=== PATIENT | female | born 1970 ===

== ENCOUNTER 2017-03-11 20:35 | Emergency (ER) | payer MEDICAID ==
[2017-03-11 20:43] VITALS: BP 138/89; PULSE 102; RESP 18; TEMP 97.5; O2SAT 98
--- NOTE | 2017-03-11 21:23 | ED PDOC ---
HPI: Abdomen Time Seen by Provider: 03/11/17 20:47 Chief Complaint (Nursing): Abdominal Pain Chief Complaint (Provider): Abdominal pain History Per: Patient History/Exam Limitations: no limitations Onset/Duration Of Symptoms: Days (1 week) Current Symptoms Are (Timing): Still Present Associated Symptoms: denies: Vomiting, Diarrhea Additional Complaint(s): Patient is a 46 year old female with history of uterine fibroids presenting to the emergency department for worsening lower abdominal pain that radiates to her lower back and is accompanied by a small amount of vaginal bleeding since her last menstrual period one week ago. Reports that she usually experiences pain during her period but this pain has continued and worsened afterwards. Also admits to frequency in urination. Patient reports she takes Advil every day for relief of pain but today she took oxycodone with relief of symptoms. Denies vomiting, diarrhea, or dysuria. Of note, patient was in [facility] about 3 months ago for embolization of fibroids. PCP: none provided Curriculum Consultant: [facility] in [place], [place] Past Medical History Reviewed: Historical Data, Nursing Documentation, Vital Signs Vital Signs: Last Vital Signs Temp 97.5 F L 03/11/17 20:38 Pulse 102 H 03/11/17 20:38 Resp 18 03/11/17 20:38 BP 138/89 03/11/17 20:38 Pulse Ox 98 03/12/17 03:20 - Medical History PMH: Denies: Chronic Kidney Disease Other PMH: Uterine fibroids - Surgical History Surgical History: - Family History Family History: States: Unknown Family Hx - Social History Current smoker - smoking cessation education provided: No Alcohol: None Drugs: Denies - Immunization History Hx Tetanus Toxoid Vaccination: No Hx Influenza Vaccination: No Hx Pneumococcal Vaccination: No - Home Medications Home Medications: Ambulatory Orders Medication Instructions Recorded Ascorbate Calcium [Vitamin C] 500 mg PO DAILY 08/08/16 Ferrous Sulfate [Ferosul] 325 mg PO DAILY 08/08/16 Ibuprofen [Motrin Tab] 800 mg PO Q8 #20 tab 08/08/16 Nitrofurantoin Macrocrystals 100 mg PO BID #10 cap 03/12/17 [Macrobid] - Allergies Allergies/Adverse Reactions: Allergies Allergy/AdvReac Type Severity Reaction Status Date / Time No Known Allergies Allergy Verified 11/09/15 16:33 Review of Systems ROS Statement: Except As Marked, All Systems Reviewed And Found Negative Gastrointestinal: Positive for: Abdominal Pain (lower abdominal pain that radiates to her lower back). Negative for: Vomiting, Diarrhea Genitourinary Female: Positive for: Frequency, Vaginal Bleeding (Small amount ) . Negative for: Dysuria Musculoskeletal: Positive for: Back Pain Physical Exam - Reviewed Nursing Documentation Reviewed: Yes Vital Signs Reviewed: Yes - Physical Exam Appears: Positive for: No Acute Distress (Comfortable). Negative for: Uncomfortable Head Exam: Positive for: ATRAUMATIC, NORMAL INSPECTION, NORMOCEPHALIC Skin: Positive for: Normal Color, Warm, Dry Eye Exam: Positive for: EOMI, Normal appearance, PERRL Neck: Positive for: Normal, Painless ROM, Supple Cardiovascular/Chest: Positive for: Regular Rate, Rhythm. Negative for: Murmur Respiratory: Positive for: Normal Breath Sounds. Negative for: Accessory Muscle Use, Respiratory Distress Gastrointestinal/Abdominal: Positive for: Soft, Tenderness (Diffuse lower abdominal tenderness (Right upper quadrant, left lower quadrant, and suprapubic regions)). Negative for: Normal Exam Back: Positive for: Normal Inspection. Negative for: L CVA Tenderness, R CVA Tenderness Extremity: Positive for: Normal ROM. Negative for: Pedal Edema Neurologic/Psych: Positive for: Alert, Oriented - Laboratory Results Result Diagrams: 03/11/17 21:35 03/11/17 21:35 - ECG O2 Sat by Pulse Oximetry: 98 (RA) Pulse Ox Interpretation: Normal - Progress Re-evaluation Time: 03:20 Condition: Re-examined, Improved Medical Decision Making Medical Decision Making: Time: 21:07 Initial impression: Lower abdominal pain Differential includes but not limited to uterine fibroids, ovarian cysts, cyst rupture, ovarian torsion, urinary tract infection, and dysfunctional uterine bleeding. Will consider other diagnosis as well which are not listed. Initial plan: * Type and Screen * Labs * Urine Dipstick * Urine * US Pelvis/Transvaginal * Reevaluation Scribe Attestation: Documented by China Diaz, acting as a scribe for Deana Mccoy MD. Provider Scribe Attestation: All medical record entries made by the Scribe were at my direction and personally dictated by me. I have reviewed the chart and agree that the record accurately reflects my personal performance of the history, physical exam, medical decision making, and the department course for this patient. I have also personally directed, reviewed, and agree with the discharge instructions and disposition. [id number] EXAM: US Pelvis, transabdominal and Transvaginal CLINICAL HISTORY: 46 years old, female; Pain; Pelvic pain; Prior surgery; Surgery date: 1-6 months ; Surgery type: S/P ufe 3 month ago; Additional info: Lower abdominal pain TECHNIQUE: Real-time transabdominal and transvaginal pelvic ultrasound (complete) with image documentation. Transvaginal imaging was used for better evaluation of the endometrium and adnexa. COMPARISON: No relevant prior studies available. Reference is made to a report from an examination performed 08/08/2016 FINDINGS: Uterus/cervix: The uterus is enlarged measuring 13.6 x 6.2 x 7.2 cm. The uterus is anteverted. A fibroid is detected within the posterior body of the uterus, to the left of midline measuring 8.9 x 5.2 x 5.4 cm (decreased in size from previous examination performed 08/08/2016). Normal endometrial stripe thickness, measuring 8 mm. Right ovary: Unremarkable in echogenicity and size measuring 3.2 x 1.1 x 2.0 cm. No mass. Normal blood flow. Left ovary: Increased in size measuring 4.9 x 3.1 x 2.9 cm. A single focus of decreased echogenicity is identified within the left ovary measuring 3.0 x 2.2 x 3.1 cm. Normal blood flow. Free fluid: No free fluid. IMPRESSION: Fibroid uterus. Simple cyst within the left ovary. [id number]: EXAM: CT Abdomen and Pelvis With Intravenous Contrast CLINICAL HISTORY: 46 years old, female; Pain; Abdominal pain; Localized; Lower; Prior surgery; Surgery date: 6+ months; Surgery type: ; Additional info: Lower abdominal pain TECHNIQUE: Axial computed tomography images of the abdomen and pelvis with intravenous contrast. This CT exam was performed using one or more of the following dose reduction techniques : automated exposure control, adjustment of the mA and/or kV according to patient size, and/ or use of iterative reconstruction technique. Coronal and sagittal reformatted images were created and reviewed. CONTRAST: 90 mL of administered intravenously. EXAM DATE/TIME: 03/12/2017 12:07 AM COMPARISON: CT ABD/PELV W/O CONTRA 04/09/2012 6:52:12 PM FINDINGS: The liver is normal. The spleen is normal. The pancreas is normal. No gallstones. No hydronephrosis or perinephric stranding. The bowel appears normal. A normal appendix is identified coronal images 42 through 51 unchanged from prior. There is a 2.4 cm left ovarian cyst. There is suggestion of a second cyst measuring 1.2 cm. The uterus is enlarged. There is a large approximately 4.5 x 7.5 cm heterogeneous area of low attenuation in the lower uterine segment extending slightly to the left of midline. The area is in contact with the endometrial cavity superiorly. It is not clear if it is contiguous with the endometrial canal versus compressing the endometrial canal. I do not have prior images however prior MRI and ultrasound reports from 2016 are provided which described a fibroid in this region. Based on the prior reports, I would favor fibroid with either necrosis, hemorrhage, or infection as opposed to free complex fluid within the endometrial canal. Correlation with patient's symptoms is recommended. I recommend followup to assess for stability. IMPRESSION: Heterogeneous hypoechoic structure in the lower uterine segment as discussed in detail above. Left ovarian cysts. Scribe Attestation: Documented by Joycelyn Ragsdale, acting as a scribe for Deana Mccoy MD. Scribe Attestation: All medical record entries made by the Scribe were at my direction and personally dictated by me. I have reviewed the chart and agree that the record accurately reflects my personal performance of the history, physical exam, medical decision making, and the department course for this patient. I have also personally directed, reviewed, and agree with the discharge instructions and disposition. Disposition - Clinical Impression Clinical Impression: Fibroid, UTI (urinary tract infection) - Patient ED Disposition Is Patient to be Admitted: No Doctor Will See Patient In The: Office Counseled Patient/Family Regarding: Studies Performed, Diagnosis, Need For Followup - Disposition Referrals: [facility] [Outside] Disposition: Routine/Home Disposition Time: 03:30 Condition: GOOD Additional Instructions: Take advil for pain. Follow up with your PCP in 2-3 days. Prescriptions: Nitrofurantoin Macrocrystals [Macrobid] 100 mg PO BID #10 cap Instructions: Uterine Fibroids (ED), Urinary Tract Infection in Women (DC) Forms: [employer] (Lebanese)
[2017-03-11 21:57] LABS: CHLORIDE 106 mmol/L (98-107)
[2017-03-11 21:58] LABS: POTASSIUM 4.3 MMOL/L (3.6-5.0); SODIUM 138 mmol/l (132-148)
[2017-03-11 22:00] LABS: ALB/GLOB RATIO 1.3 (1.0-2.1); AST/SGOT 53 U/L (14-36); BILIRUBIN,TOTAL 0.7 mg/dl (0.2-1.3); BLOOD UREA NITROGEN 11 mg/dl (7-17); CARBON DIOXIDE 24 mmol/L (22-30); GFR AFRICAN-AMERICAN > 60
[2017-03-11 22:01] LABS: ALKALINE PHOSPHATASE 82 U/L (38-126); ALT/SGPT 30 U/L (9-52); CALCIUM 9.7 mg/dL (8.4-10.2); GLUCOSE,RANDOM 91 mg/dL (65-105)
[2017-03-11 22:02] LABS: BASO # 0.1 K/uL (0.0-0.2); BASO % 0.4 % (0.0-2.0); EOS # 0.1 K/uL (0.0-0.7); EOS % 0.6 % (0.0-4.0); HEMATOCRIT 32.6 % (34.0-47.0); LYMPH # 2.7 K/uL (1.0-4.3); LYMPH % 21.1 % (20.0-40.0); MEAN CELL VOLUME 68.9 fl (81.0-99.0); MEAN CORPUSCULAR HEMOGLOBIN 21.6 pg (27.0-31.0); MEAN CORPUSCULAR HGB CONC 31.3 g/dL (33.0-37.0); MEAN PLATELET VOLUME 8.8 fl (7.2-11.7); MONO # 1.2 K/uL (0.0-0.8); MONO % 9.3 % (0.0-10.0); NEUT # 8.7 K/uL (1.8-7.0); NEUT % 68.6 % (50.0-75.0); NRBC % 0.1 % (0.0-0.0); RED CELL DISTRIBUTION WIDTH 19.4 % (11.5-14.5); WHITE BLOOD COUNT 12.7 K/uL (4.8-10.8)
--- NOTE | 2017-03-11 23:55 | US ---
EXAM: US Pelvis, transabdominal and Transvaginal CLINICAL HISTORY: 46 years old, female; Pain; Pelvic pain; Prior surgery; Surgery date: 1-6 months; Surgery type: S/P ufe 3 month ago; Additional info: Lower abdominal pain TECHNIQUE: Real-time transabdominal and transvaginal pelvic ultrasound (complete) with image documentation. Transvaginal imaging was used for better evaluation of the endometrium and adnexa. COMPARISON: No relevant prior studies available. Reference is made to a report from an examination performed 08/08/2016 FINDINGS: Uterus/cervix: The uterus is enlarged measuring 13.6 x 6.2 x 7.2 cm. The uterus is anteverted. A fibroid is detected within the posterior body of the uterus, to the left of midline measuring 8.9 x 5.2 x 5.4 cm (decreased in size from previous examination performed 08/08/2016). Normal endometrial stripe thickness, measuring 8 mm. Right ovary: Unremarkable in echogenicity and size measuring 3.2 x 1.1 x 2.0 cm. No mass. Normal blood flow. Left ovary: Increased in size measuring 4.9 x 3.1 x 2.9 cm. A single focus of decreased echogenicity is identified within the left ovary measuring 3.0 x 2.2 x 3.1 cm. Normal blood flow. Free fluid: No free fluid. IMPRESSION: Fibroid uterus. Simple cyst within the left ovary.
[2017-03-12] MEDS ORDERED: Morphine 4 MG/ML VIAL IVP ONE (00:29)
[2017-03-12] MEDS ORDERED: Sodium Chloride 0.9% 50 ML IV ONE (02:09)
[2017-03-12] MEDS ORDERED: Iohexol 300 100 ML IJ ONE (02:09)
--- NOTE | 2017-03-12 03:15 | CT ---
EXAM: CT Abdomen and Pelvis With Intravenous Contrast CLINICAL HISTORY: 46 years old, female; Pain; Abdominal pain; Localized; Lower; Prior surgery; Surgery date: 6+ months; Surgery type: ; Additional info: Lower abdominal pain TECHNIQUE: Axial computed tomography images of the abdomen and pelvis with intravenous contrast. This CT exam was performed using one or more of the following dose reduction techniques: automated exposure control, adjustment of the mA and/or kV according to patient size, and/or use of iterative reconstruction technique. Coronal and sagittal reformatted images were created and reviewed. CONTRAST: 90 mL of [id number] administered intravenously. EXAM DATE/TIME: 03/12/2017 12:07 AM COMPARISON: CT ABD/PELV W/O CONTRA 04/09/2012 6:52:12 PM FINDINGS: The liver is normal. The spleen is normal. The pancreas is normal. No gallstones. No hydronephrosis or perinephric stranding. The bowel appears normal. A normal appendix is identified coronal images 42 through 51 unchanged from prior. There is a 2.4 cm left ovarian cyst. There is suggestion of a second cyst measuring 1.2 cm. The uterus is enlarged. There is a large approximately 4.5 x 7.5 cm heterogeneous area of low attenuation in the lower uterine segment extending slightly to the left of midline. The area is in contact with the endometrial cavity superiorly. It is not clear if it is contiguous with the endometrial canal versus compressing the endometrial canal. I do not have prior images however prior MRI and ultrasound reports from 2016 are provided which described a fibroid in this region. Based on the prior reports, I would favor fibroid with either necrosis, hemorrhage, or infection as opposed to free complex fluid within the endometrial canal. Correlation with patient's symptoms is recommended. I recommend followup to assess for stability. IMPRESSION: Heterogeneous hypoechoic structure in the lower uterine segment as discussed in detail above. Left ovarian cysts.
== END 2017-03-12 03:50 | disposition home or self-care (01) ==
LOC: H.ER 20:35
DX: D25.9 Leiomyoma of uterus, unspecified (principal); N39.0 Urinary tract infection, site not specified; N83.202 Unspecified ovarian cyst, left side

== ENCOUNTER 2017-09-22 10:58 | Emergency (ER) | payer MEDICAID ==
[2017-09-22 11:20] VITALS: BP 126/70; PULSE 77; RESP 16; TEMP 98.2; O2SAT 99
[2017-09-22] MEDS ORDERED: Sodium Chloride 0.9% 1,000 ML IV STA (11:47)
--- NOTE | 2017-09-22 11:55 | ED PDOC ---
HPI: Abdomen Time Seen by Provider: 09/22/17 11:43 Chief Complaint (Nursing): Abdominal Pain Chief Complaint (Provider): Abdominal Pain History Per: Patient History/Exam Limitations: no limitations Onset/Duration Of Symptoms: Days (x3) Current Symptoms Are (Timing): Still Present Additional Complaint(s): 47 year old female with no significant past medical history, who presents to the ED complaining of epgiastric abdominal pain with associated nausea, vomiting , loose stools, and congestion x2 days. Patient denies fever, cough, or sore throat. Reports family members at home positive with flu. PMD: Bj Kelley Past Medical History Reviewed: Historical Data, Nursing Documentation, Vital Signs Vital Signs: Last Vital Signs Temp 98.2 F 09/22/17 11:15 Pulse 77 09/22/17 11:15 Resp 16 09/22/17 11:15 BP 126/70 09/22/17 11:15 Pulse Ox 99 09/22/17 12:17 - Medical History PMH: No Chronic Diseases Denies: Chronic Kidney Disease - Surgical History Surgical History: No Surg Hx, - Family History Family History: States: Unknown Family Hx - Immunization History Hx Tetanus Toxoid Vaccination: No Hx Influenza Vaccination: No Hx Pneumococcal Vaccination: No - Home Medications Home Medications: Ambulatory Orders Medication Instructions Recorded Ondansetron [Zofran] 4 mg PO Q8H #10 tab 09/22/17 Oseltamivir [Tamiflu] 75 mg PO BID #10 cap 09/22/17 - Allergies Allergies/Adverse Reactions: Allergies Allergy/AdvReac Type Severity Reaction Status Date / Time No Known Allergies Allergy Verified 11/09/15 16:33 Review of Systems ROS Statement: Except As Marked, All Systems Reviewed And Found Negative Constitutional: Negative for: Fever ENT: Positive for: Nose Congestion. Negative for: Throat Pain Respiratory: Negative for: Cough Gastrointestinal: Positive for: Nausea, Vomiting, Abdominal Pain, Diarrhea Physical Exam - Reviewed Nursing Documentation Reviewed: Yes Vital Signs Reviewed: Yes - Physical Exam Appears: Positive for: Non-toxic, No Acute Distress Head Exam: Positive for: ATRAUMATIC, NORMAL INSPECTION, NORMOCEPHALIC Skin: Positive for: Normal Color, Warm, Dry. Negative for: Rash Eye Exam: Positive for: EOMI, Normal appearance, PERRL ENT: Positive for: Normal ENT Inspection (moist mucous membranes) Neck: Positive for: Normal, Painless ROM, Supple Cardiovascular/Chest: Positive for: Regular Rate, Rhythm. Negative for: Murmur Respiratory: Positive for: Normal Breath Sounds (bilaterally). Negative for: Respiratory Distress Gastrointestinal/Abdominal: Positive for: Tenderness (epigastric). Negative for : Guarding, Rebound Back: Positive for: Normal Inspection. Negative for: L CVA Tenderness, R CVA Tenderness, Vertebral Tenderness Extremity: Positive for: Normal ROM. Negative for: Pedal Edema, Deformity Neurologic/Psych: Positive for: Alert, Oriented (x3). Negative for: Motor/ Sensory Deficits - Laboratory Results Result Diagrams: 09/22/17 12:17 09/22/17 12:17 - ECG O2 Sat by Pulse Oximetry: 99 (RA) Pulse Ox Interpretation: Normal Medical Decision Making Medical Decision Making: Time: 11:47 Initial Plan: --CMP --ED Urine --ED Urine dipstick --CBC w/ differential --Sodium Chloride 0.9% 200 mls/hr --Pepcid 20 mg IVP --Zofran Inj 4 mg IVP --Influenza A B --Reevaluation Scribe Attestation: Documented by Mitchell Callahan, acting as a scribe for Arie Mueller MD. Provider Scribe Attestation: All medical record entries made by the Scribe were at my direction and personally dictated by me. I have reviewed the chart and agree that the record accurately reflects my personal performance of the history, physical exam, medical decision making, and the department course for this patient. I have also personally directed, reviewed, and agree with the discharge instructions and disposition. Disposition - Clinical Impression Clinical Impression: Gastritis, Influenza - Patient ED Disposition Is Patient to be Admitted: No Counseled Patient/Family Regarding: Studies Performed, Diagnosis, Need For Followup, Rx Given - Disposition Referrals: [facility] [Outside] Disposition: Routine/Home Disposition Time: 14:48 Condition: FAIR Prescriptions: Ondansetron [Zofran] 4 mg PO Q8H #10 tab Oseltamivir [Tamiflu] 75 mg PO BID #10 cap Instructions: Gastritis (ED), Influenza (ED) Forms: [employer] (Portuguese)
[2017-09-22 12:22] LABS: BASO % 0.4 % (0.0-2.0); EOS # 0.1 K/uL (0.0-0.7); EOS % 1.3 % (0.0-4.0); HEMOGLOBIN 9.1 g/dL (12.0-16.0); LYMPH # 1.4 K/uL (1.0-4.3); LYMPH % 24.8 % (20.0-40.0); MEAN CELL VOLUME 61.1 fl (81.0-99.0); MEAN CORPUSCULAR HEMOGLOBIN 19.2 pg (27.0-31.0); MEAN CORPUSCULAR HGB CONC 31.5 g/dL (33.0-37.0); MEAN PLATELET VOLUME 8.6 fl (7.2-11.7); MONO # 0.8 K/uL (0.0-0.8); MONO % 14.5 % (0.0-10.0); NEUT # 3.4 K/uL (1.8-7.0); NRBC % 0.1 % (0.0-0.0); RBC 4.73 Mil/uL (3.80-5.20); RED CELL DISTRIBUTION WIDTH 20.9 % (11.5-14.5); WHITE BLOOD COUNT 5.8 K/uL (4.8-10.8)
[2017-09-22 12:47] LABS: ALB/GLOB RATIO 1.1 (1.0-2.1); CALCIUM 9.1 mg/dL (8.4-10.2); GFR AFRICAN-AMERICAN > 60; GFR NON-AFRICAN AMERICAN > 60
[2017-09-22 12:55] LABS: ALT/SGPT 50 U/L (9-52); AST/SGOT 53 U/L (14-36); BLOOD UREA NITROGEN 6 mg/dl (7-17)
== END 2017-09-22 15:02 | disposition home or self-care (01) ==
LOC: H.ER 10:58
DX: J11.1 Influenza due to unidentified influenza virus with other respiratory manifestations (principal); K29.70 Gastritis, unspecified, without bleeding
CPT/HCPCS: 80053; 81025; 85025; 87804; 96361; 96374; 96375; 99282; J2405; J7040

== ENCOUNTER 2018-11-07 13:21 | Emergency (ER) | payer MEDICAID, MEDICARE ==
[2018-11-07 13:57] VITALS: BP 113/79; PULSE 92; RESP 16; TEMP 98.7; O2SAT 97
--- NOTE | 2018-11-07 14:27 | ED PDOC ---
HPI: CCC, URI, Sore Throat Time Seen by Provider: 11/07/18 14:04 Chief Complaint (Nursing): Flu-like Symptoms Chief Complaint (Provider): Flu-like Symptoms History Per: Patient History/Exam Limitations: no limitations Onset/Duration Of Symptoms: Days (x3) Current Symptoms Are (Timing): Still Present Additional Complaint(s): 48 year old female presents to the emergency department with complaints of sore throat, bodyaches, dry cough, fever, and bilateral ear pressure since 11/05/18. She reports a Tmax of 100.2 degree oral temperature, for which she has been taking NyQuil for relief - last dose at 0800 this morning. No recent travel or sick contacts. LMP: 11/03/18. Denies: chest pain, abdominal pain, N/V/D, rash, urinary symptoms, neck pain/stiffness. PCP: Dr. Bj Kelley LMP: 11/03/18 Past Medical History Reviewed: Historical Data, Nursing Documentation, Vital Signs Vital Signs: Last Vital Signs Temp 98.7 F 11/07/18 13:54 Pulse 92 H 11/07/18 13:54 Resp 16 11/07/18 13:54 BP 113/79 11/07/18 13:54 Pulse Ox 97 11/07/18 13:54 - Medical History PMH: No Chronic Diseases - Surgical History Surgical History: - Family History Family History: States: Unknown Family Hx - Living Arrangements Living Arrangements: With Family - Home Medications Home Medications: Ambulatory Orders Medication Instructions Recorded Ondansetron [Zofran] 4 mg PO Q8H #10 tab 09/22/17 Oseltamivir Cap [Tamiflu] 75 mg PO BID #10 cap 09/22/17 Acetaminophen [Acetaminophen 8 650 mg PO Q8 PRN #21 tablet.er 11/07/18 Hour] Benzonatate [Tessalon Perles] 100 mg PO Q8 PRN #21 sgl 11/07/18 Ibuprofen [Motrin Tab] 600 mg PO Q6 PRN #20 tab 11/07/18 - Allergies Allergies/Adverse Reactions: Allergies Allergy/AdvReac Type Severity Reaction Status Date / Time No Known Allergies Allergy Verified 11/07/18 13:53 Review of Systems ROS Statement: Except As Marked, All Systems Reviewed And Found Negative Constitutional: Positive for: Fever, Other (general bodyaches) ENT: Positive for: Ear Pain (bilateraly pressure), Throat Pain Respiratory: Positive for: Cough (dry) Physical Exam - Reviewed Nursing Documentation Reviewed: Yes Vital Signs Reviewed: Yes - Physical Exam Comments: GENERAL APPEARANCE: Patient is awake, alert, oriented x 3, in no acute distress. Resting comfortably. SKIN: Warm, dry; (-) cyanosis. EYES: (-) conjunctival injection ENMT: Mucous membranes are moist. Midline uvula. Airway patent: (-) stridor. Pharynx: (-) swelling/hypertrophy, (+) erythema, (-) exudate. TMs: (-) erythema or bulging bilaterally. NECK: Supple, FROM (-) tenderness, (-) stiffness, (+) Mild anterior cervical lymphadenopathy. CHEST AND RESPIRATORY: (-) rhonchi, (-) rales, (-) wheezes; breath sounds equal bilaterally. Respirations even and nonlabored. HEART AND CARDIOVASCULAR: (-) irregularity NEURO AND PSYCH: Mental status as above. Cranial nerves grossly intact; strength symmetric. Gait: steady. Speech: clear. (-) facial asymmetry - Laboratory Results Urine POC: Negative - ECG O2 Sat by Pulse Oximetry: 97 (RA) Pulse Ox Interpretation: Normal - Radiology X-Ray: Interpreted by Nd X-Ray Interpretation: No Acute Disease Medical Decision Making Medical Decision Making: Initial Impression: throat pain, bodyaches, headache, cough - Probable viral illness. Initial Plan: * CXR * Motrin 600mg PO * Tessalon Perles 200mg PO * Rapid flu/strep Time: 1430 --Labs reviewed: (-) flu and strep. Pending CXR evaluation. 1500 CXR: no acute disease as read by Dario SMITH On re-evaluation, patient reports improvement of symptoms. On exam, patient remains AAOx3, in no acute distress. Lungs clear to auscultation, cardiac RRR, abdomen soft, non-tender, repeat neuro exam shows no focal findings. Vitals st able. Lab/Diagnostic results d/w the patient in great detail. Diagnosis of sore throat, cough, bodyaches, viral illness d/w the patient. Based on history, exam and diagnostic results, plan will be for outpatient follow up. Patient instructed to follow-up with pmd / referral provided / the clinic in 1- 2 days without fail. Advised to take medication as prescribed. Return to the emergency room at any time for any new or worsening symptoms. Patient states she fully agrees with and understands discharge instructions. States that she agrees with the plan and disposition. Verbalized and repeated discharge instructions and plan. I have given the patient opportunity to ask any additional questions. Scribe Attestation: Documented by Sharifa French, acting as a scribe for Shona Bishop PA-C. Provider Scribe Attestation: All medical record entries made by the Scribe were at my direction and personally dictated by me. I have reviewed the chart and agree that the record accurately reflects my personal performance of the history, physical exam, medical decision making, and the department course for this patient. I have also personally directed, reviewed, and agree with the discharge instructions and disposition. Disposition - Clinical Impression Clinical Impression: Cough, Sore throat, Body aches, Viral respiratory illness - Patient ED Disposition Is Patient to be Admitted: No Counseled Patient/Family Regarding: Studies Performed, Diagnosis, Need For Followup, Rx Given - Disposition Referrals: Bj Kelley MD [Staff Provider] - Disposition: Routine/Home Disposition Time: 15:00 Condition: STABLE Additional Instructions: The emergency medical care you received today was directed at your acute symptoms. If you were prescribed any medication, please fill it and take as directed. It may take several days for your symptoms to resolve. Return to the Emergency Department if your symptoms worsen, do not improve, or if you have any other problems. Please contact your doctor in 2 days for re-evaluation and follow up / or call one of the physicians/clinics you have been referred to that are listed on the Patient Visit Information form that is included in your discharge packet. Bring any paperwork you were given at discharge with you along with any medications you are taking to your follow up visit. Our treatment cannot replace ongoing medical care by a primary care provider (PCP) outside of the emergency department. Prescriptions: Acetaminophen [Acetaminophen 8 Hour] 650 mg PO Q8 PRN #21 tablet.er PRN Reason: Fever >100.4 F Benzonatate [Tessalon Perles] 100 mg PO Q8 PRN #21 sgl PRN Reason: Cough Ibuprofen [Motrin Tab] 600 mg PO Q6 PRN #20 tab PRN Reason: Pain, Moderate (4-7) Instructions: Viral Pharyngitis, Sore Throat in Adults, Viral Upper Respiratory Infection, Adult (DC), Cough, Adult (DC) Forms: [employer] (Chinese) Print Language: YORUBA - POA Present On Arrival: None Results - Lab Results Lab Results: 11/07/18 11/07/18 13:45 13:45 Influenza Typ A,B (EIA) Negative for flu a/b Grp A Beta Strep Ag Negative
--- NOTE | 2018-11-07 16:50 | RAD ---
Date of service: 11/07/2018 HISTORY: Cough and fever COMPARISON: Comparison chest dated 10/07/2016 TECHNIQUE: Chest PA and lateral views FINDINGS: LUNGS: No active pulmonary disease. PLEURA: No significant pleural effusion identified. No pneumothorax apparent. CARDIOVASCULAR: No aortic atherosclerotic calcification present. Normal cardiac size. No pulmonary vascular congestion. OSSEOUS STRUCTURES: No significant abnormalities. VISUALIZED UPPER ABDOMEN: Normal. OTHER FINDINGS: None. IMPRESSION: No active disease.
== END 2018-11-07 15:37 | disposition home or self-care (01) ==
LOC: H.ER 13:21
DX: J06.9 Acute upper respiratory infection, unspecified (principal); R51 Headache